=== PATIENT | male | born 1990 | race Caucasian/White ===

== ENCOUNTER 2017-07-13 20:36 | Emergency (ER) | payer OTHER ==
[~2017-07-13] VITALS: Wt 81.6 kg
[~2017-07-13 20:36] MED LIST: FLONASE ALLERG9.9 ML NAS; PREDNISONE10 MG PO; VENTOLIN H0.09 MG/AC INH
[2017-07-13] MEDS ORDERED: ANAPROX DS550 MG PO (21:28)
== END 2017-07-13 23:15 | disposition home or self-care (01) ==
LOC: ED 20:36
DX: S93.602A Unspecified sprain of left foot, initial encounter (principal); X58.XXXA Exposure to other specified factors, initial encounter; Y93.89 Activity, other specified; Y92.9 Unspecified place or not applicable; Y99.9 Unspecified external cause status

== ENCOUNTER 2018-01-13 22:25 | Emergency (ER) | payer SELFPAY ==
[~2018-01-13] VITALS: Ht 187.9 cm; Wt 68.0 kg
[~2018-01-13 22:25] MED LIST changes: +ANAPROX DS550 MG PO
[2018-01-13] MEDS ORDERED: TESSALON PERLE100 M1 PO (23:29)
[2018-01-13] MEDS ORDERED: ZITHROMAX250 MG PO (23:29)
[2018-01-13] MEDS ORDERED: PROVENTIL HFA6.7 GM INH (23:29)
== END 2018-01-13 23:34 | disposition home or self-care (01) ==
LOC: ED 22:25
DX: J20.9 Acute bronchitis, unspecified (principal); J02.9 Acute pharyngitis, unspecified

== ENCOUNTER 2025-09-05 17:16 | Emergency (ER) | payer OTHER ==
[~2025-09-05] VITALS: Ht 187.9 cm; Wt 81.6 kg
[~2025-09-05 17:16] MED LIST changes: +PROVENTIL HFA6.7 GM INH; +TESSALON PERLE100 M1 PO; +ZITHROMAX250 MG PO
[2025-09-05] MEDS ORDERED: Dicyclomine Hydrochloride 20 MG/10 ML OSYR PO STA (19:11)
[2025-09-05] MEDS ORDERED: MG-AL HYDROXIDE/SIMETICONE 30 ML UDC PO STA (19:11)
[2025-09-05] MEDS ORDERED: Pantoprazole Sodium 20 MG TAB PO ONE ×2 (20:10)
[2025-09-05] MEDS ORDERED: OMEPRAZOLE40 MG PO (20:16)
== END 2025-09-05 20:23 | disposition home or self-care (01) ==
LOC: ED 17:16
DX: K21.9 Gastro-esophageal reflux disease without esophagitis (principal); J45.909 Unspecified asthma, uncomplicated